=== PATIENT | female | born 1995 | race Caucasian/White ===

== ENCOUNTER 2016-12-21 20:41 | Emergency (ER) | payer OTHER ==
[~2016-12-21] VITALS: Ht 167.6 cm; Wt 70.8 kg
[~2016-12-21 20:41] MED LIST: IBUPROFEN 600600 M1 PO; NORCO 5-325 TA1 EACH PO; NORFLEX100 MG PO; TRAMADOL 50 MG50 MG PO; TRINATE TABLET1 TAB PO
[2016-12-22] MEDS ORDERED: NORCO 5-325 TA1 EACH PO (01:23)
[2016-12-22 01:29] VITALS: BP 124/78
== END 2016-12-22 01:29 | disposition home or self-care (01) ==
LOC: ER 20:41
DX: S43.081A Other subluxation of right shoulder joint, initial encounter (principal); J45.909 Unspecified asthma, uncomplicated; Z86.2 Personal history of diseases of the blood and blood-forming organs and certain disorders involving the immune mechanism; Z87.891 Personal history of nicotine dependence; W18.30XA Fall on same level, unspecified, initial encounter; Y93.89 Activity, other specified; Y92.89 Other specified places as the place of occurrence of the external cause; Y99.9 Unspecified external cause status

== ENCOUNTER 2017-04-16 06:27 | Emergency (ER) | payer OTHER ==
[~2017-04-16] VITALS: Ht 167.6 cm; Wt 63.5 kg
[2017-04-16] MEDS ORDERED: NORCO 5-325 TA1 EACH PO (07:50)
[2017-04-16 09:10] VITALS: BP 112/74
== END 2017-04-16 09:11 | disposition home or self-care (01) ==
LOC: ER 06:27
DX: S43.001A Unspecified subluxation of right shoulder joint, initial encounter (principal); J45.909 Unspecified asthma, uncomplicated; F10.99 Alcohol use, unspecified with unspecified alcohol-induced disorder; Z86.2 Personal history of diseases of the blood and blood-forming organs and certain disorders involving the immune mechanism; Z87.891 Personal history of nicotine dependence; W13.8XXA Fall from, out of or through other building or structure, initial encounter; Y93.89 Activity, other specified; Y92.89 Other specified places as the place of occurrence of the external cause; Y99.8 Other external cause status

== ENCOUNTER 2017-08-18 11:14 | Emergency (ER) | payer OTHER ==
[~2017-08-18] VITALS: Ht 167.6 cm; Wt 63.5 kg
[~2017-08-18 11:14] MED LIST changes: +ACCUNEB SO1.25 MG/1 INH; +ADVAIR HFA 230M12 GM INH
[2017-08-18] MEDS ORDERED: NORCO 5-325 TA1 EACH PO (14:24)
== END 2017-08-18 17:49 | disposition still patient (30) ==
LOC: ER 11:14
DX: S43.084A Other dislocation of right shoulder joint, initial encounter (principal); J45.909 Unspecified asthma, uncomplicated; F17.210 Nicotine dependence, cigarettes, uncomplicated; Z86.2 Personal history of diseases of the blood and blood-forming organs and certain disorders involving the immune mechanism; Y04.0XXA Assault by unarmed brawl or fight, initial encounter; Y93.89 Activity, other specified; Y92.89 Other specified places as the place of occurrence of the external cause; Y99.8 Other external cause status

== ENCOUNTER 2017-12-08 22:07 | Emergency (ER) | payer OTHER ==
[~2017-12-08] VITALS: Ht 170.2 cm; Wt 61.2 kg
[2017-12-09 03:06] VITALS: BP 110/50
== END 2017-12-09 03:06 | disposition home or self-care (01) ==
LOC: ER 22:07
DX: S43.101A Unspecified dislocation of right acromioclavicular joint, initial encounter (principal); J45.909 Unspecified asthma, uncomplicated; F17.210 Nicotine dependence, cigarettes, uncomplicated; X58.XXXA Exposure to other specified factors, initial encounter; Y93.89 Activity, other specified; Y92.89 Other specified places as the place of occurrence of the external cause; Y99.8 Other external cause status

== ENCOUNTER 2018-04-24 18:16 | Emergency (ER) | payer OTHER ==
[~2018-04-24] VITALS: Ht 167.6 cm; Wt 75.8 kg
[2018-04-24 18:53] LABS: URINE BILIRUBIN NEGATIVE (Negative); URINE BLOOD NEGATIVE (Negative); URINE CLARITY CLEAR; URINE COLOR YELLOW; URINE GLUCOSE-RANDOM* NEGATIVE (Negative); URINE KETONES NEGATIVE (Negative); URINE LEUKOCYTES-REFLEX NEGATIVE (Negative); URINE NITRITE-REFLEX NEGATIVE (Negative); URINE PROTEIN (DIPSTICK) NEGATIVE (Negative); URINE SPECIFIC GRAVITY <= 1.005 (1.005-1.035); URINE UROBILINOGEN 0.2 E.U./dl (0.2-1.0)
[2018-04-24 19:16] LABS: BASOPHILS 0.5 % (0.0-2.0); EOSINOPHILS 0.8 % (0.0-3.0); HEMATOCRIT 37.2 % (37.0-47.0); HEMOGLOBIN 12.8 gm/dL (12.0-15.0); LYMPHOCYTES 31.8 % (24.0-44.0); MCH 31.4 pg (26.0-34.0); MCHC 34.4 g/dL (28.0-37.0); MCV 91.3 fL (80.0-100.0); MONOCYTES 6.5 % (1.0-8.0); PLATELET COUNT 205 thou/uL (150-400); POLYS 60.4 % (36.0-66.0); RBC 4.08 mil/uL (4.20-5.00); RDW 13.5 % (10.5-14.5); WBC 6.6 thou/uL (4.0-11.0)
[2018-04-24 19:22] LABS: CALCIUM 8.9 mg/dL (8.5-10.1); CREATININE 1.2 mg/dL (0.6-1.0); POTASSIUM 3.4 mmol/L (3.5-5.1)
[2018-04-24 19:29] LABS: ALBUMIN 3.5 g/dL (3.4-5.0); TOTAL BILIRUBIN 0.6 mg/dL (<0.1-1.0); TOTAL PROTEIN 7.1 g/dL (6.4-8.2)
[2018-04-24] MEDS ORDERED: NAPROSYN500 MG PO (21:23)
[2018-04-24 21:30] VITALS: BP 112/72
== END 2018-04-24 21:31 | disposition home or self-care (01) ==
LOC: ER 18:16
PROVIDERS: Emergency Medicine
DX: N94.0 Mittelschmerz (principal); R10.2 Pelvic and perineal pain; J45.909 Unspecified asthma, uncomplicated; D64.9 Anemia, unspecified; F17.210 Nicotine dependence, cigarettes, uncomplicated

== ENCOUNTER 2018-10-23 17:20 | Emergency (ER) | payer OTHER ==
[~2018-10-23] VITALS: Ht 167.6 cm; Wt 72.6 kg
[~2018-10-23 17:20] MED LIST changes: +NAPROSYN500 MG PO
[2018-10-24 00:40] VITALS: BP 106/59
== END 2018-10-24 00:53 | disposition home or self-care (01) ==
LOC: ER 17:20
DX: O26.892 Other specified pregnancy related conditions, second trimester (principal); S43.014A Anterior dislocation of right humerus, initial encounter; O99.512 Diseases of the respiratory system complicating pregnancy, second trimester; Z87.891 Personal history of nicotine dependence; Z3A.20 20 weeks gestation of pregnancy; X50.9XXA Other and unspecified overexertion or strenuous movements or postures, initial encounter; Y93.E9 Activity, other interior property and clothing maintenance; Y92.098 Other place in other non-institutional residence as the place of occurrence of the external cause; Y99.8 Other external cause status

== ENCOUNTER 2019-04-09 07:59 | Emergency (ER) | payer OTHER ==
[~2019-04-09] VITALS: Ht 167.6 cm; Wt 83.1 kg
[2019-04-09] MEDS ORDERED: IBUPROFEN 600600 M1 PO (08:41)
[2019-04-09 11:00] VITALS: BP 118/60
== END 2019-04-09 11:00 | disposition home or self-care (01) ==
LOC: ER 07:59
DX: M24.411 Recurrent dislocation, right shoulder (principal); J45.909 Unspecified asthma, uncomplicated; Z86.2 Personal history of diseases of the blood and blood-forming organs and certain disorders involving the immune mechanism; Z87.891 Personal history of nicotine dependence

== ENCOUNTER 2020-09-18 16:18 | Emergency (ER) | payer OTHER ==
[~2020-09-18] VITALS: Ht 167.6 cm; Wt 77.1 kg
[2020-09-18 16:39] VITALS: BP 118/60
[2020-09-18] MEDS ORDERED: NORCO5 PO (17:31)
== END 2020-09-18 18:41 | disposition home or self-care (01) ==
LOC: ER 16:18
DX: S96.812A Strain of other specified muscles and tendons at ankle and foot level, left foot, initial encounter (principal); J45.909 Unspecified asthma, uncomplicated; Z86.2 Personal history of diseases of the blood and blood-forming organs and certain disorders involving the immune mechanism; Z79.1 Long term (current) use of non-steroidal anti-inflammatories (NSAID); Z87.891 Personal history of nicotine dependence; X50.1XXA Overexertion from prolonged static or awkward postures, initial encounter; Y93.89 Activity, other specified; Y92.89 Other specified places as the place of occurrence of the external cause; Y99.8 Other external cause status

== ENCOUNTER 2021-02-26 01:33 | Emergency (ER) | payer OTHER ==
[~2021-02-26] VITALS: Ht 167.6 cm; Wt 80.7 kg
[~2021-02-26 01:33] MED LIST changes: +NORCO5 PO
[2021-02-26 02:49] VITALS: BP 126/84
== END 2021-02-26 02:52 | disposition home or self-care (01) ==
LOC: ER 01:33
DX: S90.32XA Contusion of left foot, initial encounter (principal); J45.909 Unspecified asthma, uncomplicated; Z79.899 Other long term (current) drug therapy; Z87.891 Personal history of nicotine dependence; W19.XXXA Unspecified fall, initial encounter; Y93.89 Activity, other specified; Y92.89 Other specified places as the place of occurrence of the external cause; Y99.8 Other external cause status